=== PATIENT | male | born 1995 | race Two or more races ===

== ENCOUNTER 2019-01-22 22:50 | Emergency (ER) | payer BC, MEDICAID, OTHER ==
[~2019-01-22] VITALS: Ht 170.2 cm; Wt 51.7 kg
[2019-01-22] MEDS ORDERED: CHOL50004 PO (23:09)
[2019-01-22] MEDS ORDERED: OMEG1CAP40 PO (23:09)
[2019-01-22] MEDS ORDERED: AZITHROMYCIN 250MG TABLET (23:09)
[2019-01-23 00:32] VITALS: BP 104/44
== END 2019-01-23 00:33 | disposition home or self-care (01) ==
LOC: ER 22:53
DX: J06.9 Acute upper respiratory infection, unspecified (principal); Z79.899 Other long term (current) drug therapy; Z79.2 Long term (current) use of antibiotics
CPT/HCPCS: 71045; A4663